=== PATIENT | female | born 1965 | race Caucasian/White ===

== ENCOUNTER 2021-01-26 22:06 | Emergency (ER) | payer MEDICAID, OTHER ==
[~2021-01-26] VITALS: Ht 167.6 cm; Wt 65.8 kg
[2021-01-26 23:06] VITALS: BP 115/73
[2021-01-26] MEDS ORDERED: KETOROLAC TROMETHAMINE INJ 60 MG/2 ML VIAL IM ONE ×2 (23:30→23:33)
[2021-01-26] MEDS ORDERED: IBUP-1957 PO (23:31)
[2021-01-26] MEDS ORDERED: HYDROCODONE/APAP 5/325MG TABLET ONE (23:40)
--- NOTE | 2021-01-26 23:43 | NUR ---
Patient discharged to home in stable condition. Written and verbal after care instructions given. Patient verbalizes understanding of instruction. Pt ambulatory with a steady gait
[2021-01-27] MEDS ORDERED: HYDROCODONE/APAP 5/325MG TABLET PO ONE
== END 2021-01-26 23:44 | disposition home or self-care (01) ==
LOC: ER 22:08
DX: M54.16 Radiculopathy, lumbar region (principal); Z60.2 Problems related to living alone
CPT/HCPCS: 96372; 99283; J1885